=== PATIENT | female | born 1960 | race Caucasian/White ===

== ENCOUNTER → 2017-10-06 | Outpatient (CLI) | payer OTHER ==
[~2017-10-06] VITALS: Ht 170.2 cm; Wt 72.7 kg
[2017-10-06] VITALS (9 sets, daily range): BP systolic 131–158; BP diastolic 59–76; PULSE 95–112
[~2017-10-06] MED LIST: MOTRIN 200200 MG/TAB; PERCOCET 325 MG1 TA3 PO
[2017-10-06 12:02] LABS: INR 0.9 (0.8-3.0); PROTHROMBIN TIME 10.7 SECONDS (9.7-12.8)
== END ==
LOC: COL.RAD 09:50
PROVIDERS: Radiology Diagnostic Radiology
DX: R16.0 Hepatomegaly, not elsewhere classified (principal)
CPT/HCPCS: Q9967